=== PATIENT | female | born 1995 | race Caucasian/White ===

== ENCOUNTER 2018-01-01 21:56 | Emergency (ER) | payer OTHER ==
[~2018-01-01] VITALS: Ht 172.7 cm; Wt 60.6 kg
[2018-01-01 22:02] VITALS: TEMP 36.9; Ht 172.7 cm; Wt 60.6 kg
[2018-01-01] MEDS ORDERED: LACT1LOT3 TOP (22:45)
[2018-01-01] MEDS ORDERED: TRET0.027 TOP (22:45)
[2018-01-01] MEDS ORDERED: DIPH25CA65 PO (22:45)
[2018-01-01] MEDS ORDERED: MULT-513 PO (22:45)
[2018-01-01] MEDS ORDERED: METR1TAB4 PO (22:45)
[2018-01-01] MEDS ORDERED: METHYLPREDNISOLONE 125 MG VIAL IV STA (23:08)
[2018-01-01] MEDS ORDERED: FAMOTIDINE 20MG/5ML IV PUSH IV STA (23:08)
[2018-01-01] MEDS ORDERED: DiphenhydrAMINE HCL 50 MG/ML VIAL IV STA (23:08)
[2018-01-01] MEDS ORDERED: SODIUM CHLORIDE 0.9% 1000ML 1,000 ML IV ONE (23:15)
[2018-01-02 00:25] VITALS: BP 111/63; PULSE 81; O2SAT 100
[2018-01-02] MEDS ORDERED: PRED20TA2 PO (00:46)
[2018-01-02] MEDS ORDERED: EPP3/2 INJ (00:46)
--- NOTE | 2018-01-02 21:02 | EMERGENCY ROOM VISIT NOTE ---
History First contact with patient: 22:53 Chief Complaint: ALLERGIC REACTION Stated Complaint: HIVES,CLOSING THROAT,ALLERGIC REACTION History of Present Illness The patient is a 22 year old female who presents to the Emergency Room with complaints of hives and throat discomfort that began in the past one to 2 hours. The patient believes that she is having allergic reaction. The patient considers herself usually healthy and took Advil at home with only minimal improvement of symptoms. There is no history of anaphylaxis. 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 She has taken this medication in the past without difficulty. Patient is not having current abdominal pain, coughing, wheezing, or vaginal irritation. She is very pruritic and states that the hives come and go rapidly primarily across her chest and arms. She rates her discomfort a 6/10. Review of Systems More than 10 systems were reviewed and otherwise negative with the exception of history of present illness. Family History No pertinent family history Social History Smoking Status: Never Smoker Occupation Status: [employer] Current/Historical Medications Scheduled Diphenhydramine Hcl (Benadryl Allergy), 2 CAP PO TONIGHT Lactic Acid (Ammonium Lactate) (Amlactin), 1 APPLN TOP HS Metronidazole (Flagyl), 1 TAB PO BID Multivitamins/Minerals (Mvi With Minerals), 1 TAB PO DAILY Prednisone (Prednisone Tab), 40 MG PO DAILY Tretinoin (Tretinoin), 1 APPLN TOP HS Scheduled PRN Epinephrine (Epipen 2-Shaun), 1 DOSE INJ DIRECTED PRN for Allergic Reaction Physical Exam Vital Signs Date Time Temp Pulse Resp B/P (MAP) Pulse Ox O2 Delivery O2 Flow Rate FiO2 01/02/18 00:25 81 16 111/63 100 Room Air 01/01/18 22:35 82 16 100 Room Air 01/01/18 22:19 100 Room Air 01/01/18 22:02 36.9 95 18 154/88 100 Room Air Physical Exam VITALS: Vitals are noted on the nurse's note and reviewed by myself. Vital signs stable. GENERAL: Well-developed, well-nourished, female who is scratching her arms and abdomen on exam NOSE: Patent, turbinates without inflammation or discharge. MOUTH: Mucous membranes moist. Tonsils are not enlarged. Pharynx without erythema, blood, or exudate. Uvula midline. Airway patent. NECK: Supple without nuchal rigidity. No lymphadenopathy. No thyromegaly. Cervical spine is nontender. HEART: Regular rate and rhythm without murmurs gallops or rubs. LUNGS: Clear to auscultation bilaterally without wheezes, rales or rhonchi. No retractions or accessory muscle use. ABDOMEN: Positive normal bowel sounds x 4. Soft, nontender, without masses or organomegaly. No guarding or rebound tenderness. MUSCULOSKELETAL: No muscle atrophy, erythema, or edema noted. SKIN: The skin was with scattered urticarial rash best appreciated on the abdomen and arms Medical Decision & Procedures Medications Administered Medications (Trade) Dose Ordered Sig/Irene Route Start Time Stop Time Status Last Admin Dose Admin Diphenhydramine HCl (Benadryl Inj) 25 mg NOW STAT IV 01/01/18 23:08 01/01/18 23:10 DC 01/01/18 23:15 25 MG Sodium Chloride 1,000 ml @ 999 mls/hr Q1H1M ONCE IV 01/01/18 23:15 01/02/18 00:15 DC 01/01/18 23:15 999 MLS/HR Methylprednisolone Sodium Succinate (Solu-Medrol IV) 125 mg NOW STAT IV 01/01/18 23:08 01/01/18 23:10 DC 01/01/18 23:15 125 MG Famotidine (Pepcid 20mg Iv Push) 20 mg ONE STAT IV 01/01/18 23:08 01/01/18 23:10 DC 01/01/18 23:15 20 MG ED Course Physical exam and history were performed. Nursing notes, EMR, and Medication List were personally reviewed. Patient appears to be having an allergic reaction. IV access was established and the patient was hydrated with normal saline. She was given IV Solu-Medrol, IV Benadryl, and IV Pepcid. The patient was monitored for some time here in the department, and after 2 hours felt much better. She did not have symptoms of anaphylaxis. The patient is to stop her Flagyl, as this may be the cause of her symptoms. She will be given a continuation course of prednisone as well as a prescription for EpiPen' s. The patient is to follow with her primary care physician with any ongoing or persistent symptoms. She was advised to the ER with new, worsening, or concerning symptoms. The chart was completed utilizing Dragon Speech Voice Recognition Software. Grammatical errors, random word insertions, pronoun errors, and incomplete sentences are an occasional consequence of this system due to software limitations, ambient noise, and hardware issues. Any formal questions or concerns about the content, text, or information contained within the body of this dictation should be directly addressed to the provider for clarification. . Medical Decision Differential diagnosis: Etiologies such as allergic reaction, anaphylaxis, urticaria, Chairez-Adrien syndrome, toxic epidermal necrolysis, erythema multiforme, cellulitis, as well as others were entertained. Impression Primary Impression: Allergic reaction Departure Information Dispostion Home / Self-Care Condition GOOD Prescriptions Epinephrine (EPIPEN 2-SHAUN) 0.3 Mg Inj 1 DOSE INJ DIRECTED Y for Allergic Reaction, #1 PKT 1 Refill Prov: Bhanu Diamond PA-C 01/02/18 Prednisone (Prednisone Tab) 20 Mg Tab 40 MG PO DAILY for 4 Days, #8 TAB Prov: Bhanu Diamond PA-C 01/02/18 Referrals [facility] (PCP) Forms HOME CARE DOCUMENTATION FORM, IMPORTANT VISIT INFORMATION Patient Instructions [facility] Additional Instructions You were seen and evaluated today on an emergency basis only. This is not a substitute for, or an effort to provide, complete comprehensive medical care. It is not possible to recognize and treat all injuries or illnesses in a single emergency department visit. For this reason it is recommended that you followup with [facility] next week if symptoms persist. Take prednisone 40 mg daily for the next 4 days. You may use [id number] Benadryl one to 2 pills every 6 hours as needed for additional relief of symptoms Use an EpiPen if symptoms are severe. If you ever use your EpiPen please report immediately to the closest ER. You are welcome to return to the emergency department anytime with new, worsening, or concerning symptoms.
== END 2018-01-02 00:51 | disposition home or self-care (01) ==
LOC: C.EDB 21:57 → C.EDC 01-02 00:51
DX: T78.40XA Allergy, unspecified, initial encounter (principal); X58.XXXA Exposure to other specified factors, initial encounter